=== PATIENT | male | born 1955 | race Caucasian/White ===

== ENCOUNTER 2018-12-15 11:22 | Emergency (ER) | payer OTHER ==
[~2018-12-15] VITALS: Ht 188 cm; Wt 84.1 kg
[~2018-12-15 11:22] MED LIST: FLOMAX0.4 MG PO; FUROSEMIDE20 MG PO; NORCO 7.5/325 T1 TA1 PO
[2018-12-15 11:26] VITALS: Ht 188 cm; Wt 84.1 kg
[2018-12-15 12:12] LABS: BASOPHILS 0.1 % (0-2); EOSINOPHILS 0 % (0-7); HEMATOCRIT 46.7 % (42.0-54.0); HEMOGLOBIN 16.7 g/dL (13.5-17.5); IMMATURE GRANULOCYTES 0.3 % (0-5); LYMPHOCYTES 6.5 % (15-50); MCHC 35.8 g/dL (31.0-37.0); MCV 89.5 fL (80.0-100.0); MEAN PLATELET VOLUME 10.8 fL (7.4-10.4); MONOCYTES 6.2 % (2-11); NEUTROPHILS 86.9 % (40-80); PLATELET COUNT 131 10x3/uL (130-400); RBC 5.22 10x6/uL (4.20-6.10); RDW 13.5 % (11.5-14.5); WBC 11.3 10x3/uL (4.8-10.8)
[2018-12-15 12:13] LABS: APPEARANCE CLEAR (CLEAR); BILIRUBIN NEGATIVE (NEGATIVE); COLOR YELLOW (YELLOW); GLUCOSE NEGATIVE (NEGATIVE); KETONE SMALL mg/dL (NEGATIVE); NITRITE NEGATIVE (NEGATIVE); PROTEIN NEGATIVE (NEGATIVE); UROBILINOGEN NORMAL (NORMAL)
[2018-12-15 12:20] LABS: RED CELLS - URINE RARE /hpf (0-5); WHITE CELLS - URINE RARE /hpf (0-5)
[2018-12-15 12:21] LABS: AMORPHOUS SEDIMENT <1+ /lpf (NONE SEEN); BACTERIA FEW /hpf (NONE SEEN); EPITHELIAL CELLS RARE /hpf (0-5)
[2018-12-15 12:25] LABS: ALBUMIN 3.6 g/dL (3.4-5.0); ALKALINE PHOSPHATASE 49 U/L (46-116); ALT (SGPT) 29 U/L (10-68); BILIRUBIN - TOTAL 1.11 mg/dL (0.2-1.3); CALC OSMOLALITY 283 mosm/kg (275-300); CALCIUM 8.6 mg/dL (8.5-10.1); CARBON DIOXIDE 24.8 mmol/L (21.0-32.0); CHLORIDE - SERUM 103 mmol/L (98-107); GLUCOSE 170 mg/dL (74-106); POTASSIUM - SERUM 3.2 mmol/L (3.5-5.1); PROTEIN - SERUM 7.3 g/dL (6.4-8.2); SODIUM 140 mmol/L (136-145); UREA NITROGEN 14 mg/dL (7-18); eGFR NON AFRICAN AMERICAN 80 mL/min (90-120)
[2018-12-15 12:57] VITALS: BP 131/81
== END 2018-12-15 12:57 | disposition home or self-care (01) ==
LOC: D.ER 11:22
PROVIDERS: Family Medicine
DX: R33.9 Retention of urine, unspecified (principal); E87.6 Hypokalemia; M54.5 Low back pain

== ENCOUNTER 2019-01-17 08:25 | Day surgery (SDC) | payer OTHER ==
[~2019-01-17] VITALS: Ht 188 cm; Wt 80.8 kg
[~2019-01-17 08:25] MED LIST changes: +XANAX0.25 MG PO
[2019-01-17 09:23] VITALS: BP 142/95; Ht 188 cm; Wt 80.8 kg
--- NOTE | 2019-01-17 13:10 | OP ---
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 60 gram prostate on PARVEEN, IPSS score is 15, quality of life score is 3. PROCEDURE: UroLift times 4 implant. FINDINGS: Bilateral lateral lobe hyperplasia, bladder neck stenosis. Single ureteral orifices bilaterally, inflamed bladder from the indwelling Renteria catheter. BLOOD LOSS: Minimal. CLINICAL HISTORY: This is a 63-year-old male, who came to the Emergency Room when he was unable to void. He had a Renteria catheter inserted and he had a postvoid residual of 1.5 liters. He continues to have the indwelling Renteria catheter. Prior to going into retention, he had nocturia times 1 and he denied any urgency, frequency or hesitancy. He said the stream was "normal" until he was unable to void. He has been on tamsulosin in the past, but he took it on an irregular basis. He does not have any diabetes. He comes today to have his urinary retention treated with a UroLift procedure. In the office, his IPSS score was 7 and his quality of life score was 6. I am not sure that he fully understood the questionnaire, so I gave it to him again today prior to his surgery. His IPPS score today is 15 and his quality of life score is 3. HE IS ALLERGIC TO PENICILLIN. We gave him Levaquin prevention rn to the OR. DESCRIPTION OF PROCEDURE: The patient was given IV sedation. He was then placed into dorsal lithotomy position and prepped and draped. The UroLift cystoscope was placed in. The lateral lobes are mildly obstructive, but most of the obstruction seems to be at the level of the bladder neck. We placed 2 units at the bladder neck level. These were one on each side at the anterior lateral prostatic urethra about 1.5 cm distal to the bladder neck. The patient has a lot of irregular mucosal folds, which hangs down and made visualization of the device difficult. We also placed 2 units at the verumontanum level. The rather vascular prostate made further visualization difficult, but he seems to have an open channel plus he has 2 units on each side. We then removed the cystoscope. A 16-[place] Renteria catheter was placed into the bladder and the balloon inflated with 10 cc of sterile water. The patient will go home with a Renteria catheter today. I will see him in followup next week to have a voiding trial. TRANSINT:[id number] Voice Confirmation ID: [id number] DOCUMENT ID: [id number] OPERATIVE REPORT [id number] CYNDEE ROLON ROBERT S MD at 1310 CC: [id number] DICTATION DATE: 01/17/19 1234 CARE ANALYST: 01/17/19 1302 [facility] [address] [place] [address]
[2019-01-17] MEDS ORDERED: ULTRAM50 MG PO (15:24)
--- NOTE | 2019-01-17 16:20 | NUR ---
PATIENT'S NEIGHBOR JOSE LEARY HAS ARRIVED, PATIENT IS DRESSED, WALKING AROUND ROOM, DISCHARGE INSTRUCTIONS REVIEWED WITH PATIENT, DISCHARGED HOME VIA WHEELCHAIR TO PRIVATE VEHICLE WITH NEIGHBOR
== END 2019-01-17 16:20 | disposition home or self-care (01) ==
LOC: D.OPS 08:25 → D.PAN 10:30 → D.OPS 11:30 → D.PAN 11:30 → D.OPS 16:20
PROVIDERS: ATTEND Urology
DX: N40.1 Benign prostatic hyperplasia with lower urinary tract symptoms (principal); N13.8 Other obstructive and reflux uropathy; R33.8 Other retention of urine; R35.1 Nocturia; Z88.0 Allergy status to penicillin; Z01.812 Encounter for preprocedural laboratory examination

== ENCOUNTER 2019-01-19 13:02 | Emergency (ER) | payer OTHER ==
[~2019-01-19] VITALS: Ht 188 cm; Wt 85.0 kg
[~2019-01-19 13:02] MED LIST changes: +ULTRAM50 MG PO
[2019-01-19 13:32] VITALS: Ht 188 cm; Wt 85.0 kg
[2019-01-19 15:48] VITALS: BP 123/82
== END 2019-01-19 15:48 | disposition home or self-care (01) ==
LOC: D.ER 13:02
DX: T83.018A Breakdown (mechanical) of other urinary catheter, initial encounter (principal)